=== PATIENT | male | born 1935 | race Caucasian/White ===

== ENCOUNTER 2018-08-07 06:51 | Day surgery (SDC) | payer MEDICARE ==
[2018-08-05 16:40] VITALS: BP 153/71
[2018-08-05 16:55] LABS: EOSINOPHILS % (AUTO) 1.9 % (0.0-8.0); HEMATOCRIT 40.7 % (42-54); MEAN CORPUSCULAR HEMOGLOBIN 32.2 pg (27.0-33.0); MEAN CORPUSCULAR VOLUME 94.8 fL (79-99); MONOCYTES % (AUTO) 7.6 % (3.0-13.0); NEUTROPHILS % (AUTO) 64.5 % (40.0-77.0); PLATELET COUNT (AUTO) 237 K/uL (130-400); RED CELL DISTRIBUTION WIDTH 12.7 % (11.0-15.5); WHITE BLOOD COUNT (AUTO) 12.1 K/uL (4.8-10.8)
[2018-08-05 17:09] LABS: CREATININE 1.6 mg/dL (0.5-1.5); POTASSIUM 4.5 mmol/L (3.5-5.1)
[2018-08-07] VITALS (13 sets, daily range): BP systolic 109–141; BP diastolic 50–68
[~2018-08-07] VITALS: Ht 172.7 cm; Wt 95.3 kg
[2018-08-07] MEDS: CEFTRIAXONE SODIUM 1 GM IVP SCH ×2 (06:00→08:20)
[~2018-08-07 06:51] MED LIST: AMLO10TA6 PO; ASPI-555 PO; ATOR20TA65 PO; CHLO25TA3 PO; INSU100I13 SQ; LEVO25TA54 PO; LOSA100T20 PO; TAMS0.4C32 PO; WARF-57 PO
[2018-08-07] MEDS ORDERED: CEFTRIAXONE SODIUM 1 GM IVP ONE (07:19)
[2018-08-07] MEDS ORDERED: LACTATED RINGERS 1000ML 1,000 ML IV ONE (07:19)
[2018-08-07] MEDS ORDERED: SODIUM CHLORIDE 0.9% 1000ML 1,000 ML IV ONE (07:24)
[2018-08-07] MEDS ORDERED: PROPOFOL 10 MG/ML 20ML VIAL IV ONE (07:59)
[2018-08-07] MEDS ORDERED: FENTANYL CITRATE PF 50 MCG/1 ML 2ML VIAL ONE (07:59)
[2018-08-07] MEDS ORDERED: LIDOCAINE PF 2% 5ML ABBOJECT ONE (07:59)
[2018-08-07] MEDS ORDERED: GLYCOPYRROLATE 1 MG/5 ML SYRINGE ONE (08:27)
[2018-08-07] MEDS ORDERED: OPIUM/BELLADONNA ALKALOIDS 1 EACH SUPP.RECT RC ONE (09:24)
[2018-08-07] MEDS ORDERED: PHENAZOPYRIDINE HCL 200 MG TABLET ONE (10:21)
== END 2018-08-07 11:03 | disposition home or self-care (01) ==
LOC: DAH 06:51
PROVIDERS: ATTEND Urology
DX: N40.1 Benign prostatic hyperplasia with lower urinary tract symptoms (principal); N32.0 Bladder-neck obstruction; E11.22 Type 2 diabetes mellitus with diabetic chronic kidney disease; I12.9 Hypertensive chronic kidney disease with stage 1 through stage 4 chronic kidney disease, or unspecified chronic kidney disease; N18.9 Chronic kidney disease, unspecified; I25.10 Atherosclerotic heart disease of native coronary artery without angina pectoris; E03.9 Hypothyroidism, unspecified; Z95.5 Presence of coronary angioplasty implant and graft; Z79.4 Long term (current) use of insulin; Z79.899 Other long term (current) drug therapy; Z79.82 Long term (current) use of aspirin; Z98.49 Cataract extraction status, unspecified eye; Z98.890 Other specified postprocedural states
CPT/HCPCS: 36415; 80048; 82948; 85025; 93005; A4218; A4340; A4354; J0696; J2001; J2704; J3010; J3490; J7030; J7120